=== PATIENT | male | born 1955 | race Caucasian/White ===

== ENCOUNTER 2017-06-04 06:21 | Emergency (ER) | payer OTHER ==
[~2017-06-04] VITALS: Ht 172.7 cm; Wt 69.3 kg
[2017-06-04 06:22] VITALS: BP 125/83
[2017-06-04] MEDS ORDERED: KETOROLAC 30 MG/1 ML IM ONE (07:00)
[2017-06-04] MEDS ORDERED: KETOROLAC 30 MG/1 ML ONE (07:26)
== END 2017-06-04 07:31 | disposition home or self-care (01) ==
LOC: ED 07:25
DX: M79.671 Pain in right foot (principal); M79.672 Pain in left foot; M72.2 Plantar fascial fibromatosis; G89.29 Other chronic pain
CPT/HCPCS: 96372; 99283; J1885